=== PATIENT | female | born 1975 | race Caucasian/White ===

== ENCOUNTER 2017-11-13 09:49 | Emergency (ER) | payer OTHER ==
[2017-11-13] MEDS ORDERED: Morphine 4 MG/ML Carpuject ONE (10:02)
--- NOTE | 2017-11-13 16:52 | RAD ---
LEFT SHOULDER THREE VIEWS: 11/13/2017 FINDINGS: A slightly displaced fracture through the greater tubercle of the humerus is present. Additionally, there is an impacted fracture of the neck of the humerus that is nondisplaced. IMPRESSION: Fractures of the humeral neck and greater tubercle. CODE T POS: HOME
== END 2017-11-13 10:59 | disposition home or self-care (01) ==
LOC: BURERS 09:49
DX: S42.255A Nondisplaced fracture of greater tuberosity of left humerus, initial encounter for closed fracture (principal); K21.9 Gastro-esophageal reflux disease without esophagitis; F17.210 Nicotine dependence, cigarettes, uncomplicated; Z79.899 Other long term (current) drug therapy; W01.0XXA Fall on same level from slipping, tripping and stumbling without subsequent striking against object, initial encounter
CPT/HCPCS: 96372; J2270